=== PATIENT | female | born 1945 | race Caucasian/White ===

== ENCOUNTER → 2016-05-27 | Outpatient (CLI) | payer OTHER, MEDICARE ==
--- NOTE | 2016-05-27 20:52 | DX ---
DEXA Bone Mineral Densitometry Clinical Indications: Osteopenia in a 70-year-old female. Technique: Bone Mineral Densitometry (BMD) by Dual Energy X-Ray Absorptiometry (DEXA) was performed utilizing the [employer] scanner. The lumbar spine was evaluated in the AP projection. The bilat eral hips and forearm were evaluated in the AP projection. Vertebral fracture assessment was also p erformed. Comparison: August 31, 2008. AP Lumbar Spine: The L1, L2, L3, and L4 vertebral bodies were evaluated. BMD: 1.060 gm/cm2. T-score: -1.1 SD. Z-score: 0.6 SD. -2.3% change from the comparison. AP Left Hip: Total BMD: 0.800 gm/cm2. T-score: -1.6 SD. Z-score: -0.1 SD. -3.6% change from the prior examination. AP Right Hip: Total BMD: 0.77 gm/cm2. T-score: -1.8 SD. Z-score: -0.2 SD. -4.8% change from the prior examination. AP Left Forearm, 05/20: BMD: 0.823 gm/cm2. T-score: -0.6 SD. Z-score: 1.5 SD. 1.7% increase compared to the prior exam. Vertebral Fracture Assessment: No significant fracture deformity. No prevertebral aortic calcifica tion, significant marginal bone spurring, facet arthrosis, or intrinsic vertebral body sclerosis that would effect the accuracy of the lumbar spine BMD measurement. Conclusion: Considering the lowest measured site, the patient is osteopenic based on the right hip. The ten year FRAX risk for any major osteoporotic fracture, which excludes the risk for a wrist fract ure, is 20.2% and for a hip fracture is 8.8%. Any bone loss in this patient is probably related to aging or estrogen deficiency. To prevent osteoporosis and to promote bone density, consider the following recommendations: 1. Pursue a regular regimen of weightbearing and muscle-strengthening exercises in order to reduce t he risk of falls and fracture (as tolerated by the patient's general medical condition). 2. Ensure that total daily dietary calcium intake is maximized. 3. Check serum hydroxy vitamin D3 (normal >30ng/ml). 4. Ensure daily intake of vitamin D is 800 international units. 5. Consider follow up DEXA scan in two years to assess the rate of bone loss in this patient. 6. Consider excluding common secondary causes of bone loss. Laboratory evaluation might include CBC , TSH, calcium, phosphorous, albumin, creatinine, alkaline phosphatase, PTH, serum, electrophoresis ( SPEP or UPEP), antitissue transglutaminase antibody levels (celiac disease), and hydroxy vitamin D3, as well as a 24-hour urine calcium.
== END ==
LOC: FIMAGING 13:15
PROVIDERS: ATTEND Physician Assistant
DX: Z13.820 Encounter for screening for osteoporosis (principal); M85.80 Other specified disorders of bone density and structure, unspecified site

== ENCOUNTER → 2017-09-09 | Outpatient (CLI) | payer OTHER, MEDICARE | LOC: BHFA 11:00 | PROVIDERS: ATTEND Internal Medicine Cardiovascular Disease | DX: R06.02 Shortness of breath (principal) ==

== ENCOUNTER → 2017-09-23 | Outpatient (CLI) | payer OTHER, MEDICARE | LOC: BHFA 09:30 | PROVIDERS: ATTEND Internal Medicine Cardiovascular Disease | DX: R94.30 Abnormal result of cardiovascular function study, unspecified (principal) | CPT/HCPCS: 78452; 93017; A9500; J2785 ==

== ENCOUNTER → 2017-12-09 | Outpatient (CLI) | payer OTHER, MEDICARE | LOC: FIMAGING 11:55 | PROVIDERS: ATTEND Nurse Practitioner Family | DX: N63.21 Unspecified lump in the left breast, upper outer quadrant (principal) ==

== ENCOUNTER → 2017-12-14 | Outpatient (CLI) | payer OTHER, MEDICARE ==
[~2017-12-14] MED LIST: LIDOCAINE 1% 300 MG/30 ML SDV ONE
== END ==
LOC: FIMAGING 07:55
PROVIDERS: ATTEND Physician Assistant
PROC: 0HBU3ZX Excision of Left Breast, Percutaneous Approach, Diagnostic (ICD-10-PCS; principal; 2017-12-14)
DX: C50.912 Malignant neoplasm of unspecified site of left female breast (principal)
CPT/HCPCS: 88184-90; 88185-91

== ENCOUNTER 2018-01-08 05:49 | Observation (INO) | payer OTHER, MEDICARE ==
[2018-01-08] MEDS ORDERED: LR 1,000 ML IV ONE (05:58)
[2018-01-08] MEDS ORDERED: VANCOMYCIN PHARMACY TO DOSE MISC ONE (06:00)
[2018-01-08] MEDS ORDERED: VANCOMYCIN HCL/NORMAL SALINE 250 ML IV ONE (06:00)
[2018-01-08] MEDS ORDERED: BUPIVACAINE 0.5% 30 ML SDV ONE (07:06)
[2018-01-08] MEDS ORDERED: LIDOCAINE 1% 300 MG/30 ML SDV ONE (07:06)
[2018-01-08] MEDS ORDERED: MIDAZOLAM 2 MG/2 ML VIAL IVP ONE (07:09)
--- NOTE | 2018-01-08 07:11 | PDHPUP ---
History & Physical Update H&P update statement: This history and physical update is based on an assessment of the patient which was completed after admission or registration (within 24 hours), but prior to the surgery/procedure. H&P update: H&P reviewed & patient examined, no change in patient's condition since H&P completed
[2018-01-08] MEDS ORDERED: MIDAZOLAM 2 MG/2 ML VIAL ONE (07:12)
--- NOTE | 2018-01-08 07:13 | PDANEPAE ---
ANE History of Present Illness re-excision pec muscle ANE Past Medical History - Cardiovascular History Hx Hypertension: No Hx Arrhythmias: No Hx Chest Pain: No Hx Coronary Artery / Peripheral Vascular Disease: No Hx CHF / Valvular Disease: No Hx Palpitations: No Cardiovascular History Comment: BP mildly elevated R/T to stress. mitral valve prolapse - Pulmonary History Hx COPD: No Hx Asthma/Reactive Airway Disease: No Hx Recent Upper Respiratory Infection: No Hx Oxygen in Use at Home: No Hx Sleep Apnea: No Sleep Apnea Screening Result - Last Documented: Negative - Neurologic History Hx Cerebrovascular Accident: No Hx Seizures: No Hx Dementia: No - Endocrine History Hx Diabetes: No Endocrine History Comment: HYPOTHYROID - Renal History Hx Renal Disorders: No - Liver History Hx Hepatic Disorders: No - Neurological & Psychiatric Hx Hx Neurological and Psychiatric Disorders: Yes Neurological / Psychiatric History Comment: DEPRESSION - Cancer History Hx Cancer: Yes Cancer History Comment: BREAST cancer - Congenital Disorder History Hx Congenital Disorders: No - GI History Hx Gastrointestinal Disorders: No - Other Health History Other Health History: BRUISES EASILY. SELVIN LEG VARICOSE VEINS - Chronic Pain History Chronic Pain: Yes (incisional discomfort) - Surgical History Prior Surgeries: SELVIN CATARACT. TUBAL LIGATION. LT ING HERNIA. BREAST IMPLANTS. BREAST IMPLANT REMVL. lumpectomy left breast ANE Review of Systems Review of Systems: - Exercise capacity METS (RN): 4 METS ANE Patient History - Allergies Allergies/Adverse Reactions: azithromycin [From Zithromax] Allergy (Verified 01/07/18 10:44) N/V cephalexin monohydrate [From Keflex] Allergy (Verified 01/07/18 10:44) Unknown Penicillins Allergy (Verified 01/07/18 10:44) facial swelling rosuvastatin calcium [From Crestor] Allergy (Verified 01/07/18 10:44) myalgia, depression Sulfa (Sulfonamide Antibiotics) Allergy (Verified 01/07/18 10:44) facial swelling - Home Medications Home medications: home medication list seen and reviewed Home Medications: Advil 12/31/17 [Last Taken 1 Week Ago ~12/25/17] Aspirin 81mg (*) 12/31/17 [Last Taken 01/06/18] Bupropion HCl 12/31/17 [Last Taken 01/06/18] Ipratropium 0.03% Nasal 12/31/17 [Last Taken 01/06/18] Lexapro 12/31/17 [Last Taken 01/06/18] Ritalin 20mg (*) 12/31/17 [Last Taken 01/06/18] Synthroid 100 mcg (*) 12/31/17 [Last Taken 01/06/18] Herbals/Supplements -Info Only 01/01/18 [Last Taken 01/07/18] Hydrocodone/APAP 5/325 [[place] 5/325 (*)] 01/07/18 [Last Taken 01/08/18 00:01] - NPO status NPO Status: no food or drink >8 hours NPO Since - Liquids (Date): 01/08/18 NPO Since - Liquids (Time): 00:01 NPO Since - Solids (Date): 01/07/18 NPO Since - Solids (Time): 19:00 - Anes Hx Anes Hx: no prior problems - Smoking Hx Smoking Status: Former smoker - Alcohol Use Alcohol Use: None - Family Anes Hx Family Anes Hx: none Family Hx Anesthesia Complications: none ANE Labs/Vital Signs - Labs - BMP Creatinine: mild CRI - Vital Signs Blood Pressure: 137/76 Heart Rate: 68 Respiratory Rate: 16 O2 Sat (%): 93 Height: 167.64 cm Weight: 68.039 kg ANE Physical Exam - Airway Neck exam: FROM Mallampati Score: Class 2 Mouth exam: normal dental/mouth exam - Pulmonary Pulmonary: no respiratory distress - Cardiovascular Cardiovascular: regular rate and rhythym - ASA Status ASA Status: II ANE Anesthesia Plan Anesthesia Plan: general endotracheal anesthesia, GA w LMA (GETA vs LMA)
[2018-01-08] MEDS ORDERED: PROPOFOL/EMULSION 500 MG/50 ML BOTTLE IV ONE (07:25)
[2018-01-08] MEDS ORDERED: fentaNYL 100 MCG/2 ML INJ ONE ×3 (07:25→09:37)
[2018-01-08] MEDS ORDERED: DEXAMETHASONE 4 MG/ML VIAL ONE (07:25)
[2018-01-08] MEDS ORDERED: LIDOCAINE 2% JELLY 5 ML TUBE ONE (07:25)
[2018-01-08] MEDS ORDERED: LIDOCAINE 2% 100 MG/5 ML SYR ONE (07:25)
[2018-01-08] MEDS ORDERED: ONDANSETRON 4 MG/2 ML VIAL ONE (07:25)
[2018-01-08] MEDS ORDERED: ACETAMINOPHEN 500 MG TAB PO PRN ×2 (07:42→08:27)
[2018-01-08] MEDS ORDERED: THROMBIN (BOVINE) 20,000 UNIT SPRAY TP ONE (08:04)
[2018-01-08] MEDS ORDERED: ePHEDrine SULFATE 25 MG/5 ML SYR ONE (08:12)
--- NOTE | 2018-01-08 08:26 | POSTOPPROG ---
Post Op Note Date of Operation: 01/08/18 Surgeon: Lexie Del Rio Sports Manager: tam Anesthesiologist: wes Anesthesia: GET(General Endotracheal) Pre-op Diagnosis: L chest wall sarcom Post-op Diagnosis: same Indication: 72 yo with sarcoma Procedure: WLE chest wall including pectoralis major Findings: no unusual Inf/Abcess present in the surg proc area at time of surgery?: No Depth: Superfical (Skin SQ) Drains: Carlos A Keys Specimen(s): chest wall
[2018-01-08] MEDS ORDERED: LABETALOL HCL 5 MG/ML 20 ML MDV IVP PRN (08:27)
[2018-01-08] MEDS ORDERED: ALBUTEROL 3 ML DEYVIAL IH PRN (08:27)
[2018-01-08] MEDS ORDERED: oxyCODONE IR 5 MG TAB PO PRN (08:27)
[2018-01-08] MEDS ORDERED: HYDROCODONE/APAP 5/325 TAB PO PRN (08:27)
[2018-01-08] MEDS ORDERED: LR 500 ML IV PRN (08:27)
[2018-01-08] MEDS ORDERED: METOCLOPRAMIDE 10 MG/2 ML VIAL IVP PRN (08:27)
[2018-01-08] MEDS ORDERED: MEPERIDINE 25 MG/0.5 ML AMP IVP PRN (08:27)
[2018-01-08] MEDS ORDERED: ONDANSETRON 4 MG/2 ML VIAL IVP PRN (08:27)
[2018-01-08] MEDS ORDERED: NALOXONE HCL 0.4 MG/ML INJ IVP PRN (08:27)
[2018-01-08] MEDS ORDERED: DEXAMETHASONE 4 MG/ML VIAL IVP PRN (08:27)
[2018-01-08] MEDS ORDERED: PROMETHAZINE HCL 25 MG/ML INJ IVP PRN (08:27)
[2018-01-08] MEDS ORDERED: PHENYLEPHRINE HCL 100 MCG/ML SYR IVP PRN (08:27)
--- NOTE | 2018-01-08 08:41 | GOP ---
[f rep st] OPERATIVE REPORT DATE OF OPERATION: 01/08/2018 SURGEON: Lexie Del Rio MD FREIGHT ROUTER: Olena Varela, ESHA. ANESTHESIA: General. ANESTHESIOLOGIST: Srinivasan Keene MD. PREOPERATIVE DIAGNOSIS: Left chest wall sarcoma. POSTOPERATIVE DIAGNOSIS: Left chest wall sarcoma. PROCEDURE PERFORMED: Wide local excision left chest wall [id number] including pectoralis major. FINDINGS: No unusual findings. SPECIMENS: Left chest wall including pectoralis major. ESTIMATED BLOOD LOSS: 10 cc. INDICATIONS: The patient is a 72-year-old woman who had a mass in her left upper chest. Biopsy obtained which showed metaplastic versus sarcoma. The MRI showed more likely sarcoma. I took her to the operating room for wide local excision and took quite a bit of pectoralis muscle. She had a positive deep margin, medial margin and less than 1 mm from superior margin. DESCRIPTION OF PROCEDURE: Patient was brought into the operating room, placed supine on the table and general anesthesia was administered. Her bilateral chest was prepped and draped in the usual sterile fashion. Infiltrated all sites with 0.5% Marcaine prior to making incisions. I marked out 1 cm superiorly, medially, and made an ellipse around her previous scar. I then created skin flaps to continue her dissection toward the clavicle and then beneath the nipple. I excised the pectoralis muscle from the chest wall extending all the way laterally to the attachments by the axilla approximately 10x15 cm. The specimen was marked green anterior, red superior, yellow medial, blue inferior, orange lateral, black posterior. Hemostasis was achieved. Thrombin was placed in the wound. A channel drain was placed in the wound and sutured into place with 3-0 Nylon. The wound was closed with 3-0 Vicryl and 4- 0 Monocryl. Mastisol, Steri-Strips, and a sterile dressing were applied. She was awakened in the operating room, extubated, transferred to PACU in stable condition. /[id number]/MODL MTDD
[2018-01-08] MEDS: fentaNYL 100 MCG/2 ML INJ IVP PRN ×4 (09:11→09:50)
--- NOTE | 2018-01-08 10:08 | POSTANESTH ---
Post Anesthetic Evaluation Cardiovascular Status: Normal, Stable Respiratory Status: Normal, Stable Level of Consciousness/Mental Status: Can Participate in Eval Pain Control: Adequate, Prn Tx Ordered Nausea/Vomiting Control: Adequate, Prn Tx Ordered Complications Possibly Related to Anesthesia: None Noted
[2018-01-08] MEDS: HYDROCODONE/APAP 5/325 TAB PO PRN ×3 (11:16→21:34)
[2018-01-08] MEDS: IBUPROFEN 600 MG TAB PO SCH ×2 (14:12→21:34)
[2018-01-09] MEDS: HYDROCODONE/APAP 5/325 TAB PO PRN ×3 (02:09→11:17)
[2018-01-09] MEDS: IBUPROFEN 600 MG TAB PO SCH (06:16)
[2018-01-09 08:42] VITALS: BP 136/75
[2018-01-09] MEDS ORDERED: buPROPion XL 150 MG TAB PO SCH (09:00)
[2018-01-09] MEDS ORDERED: ESCITALOPRAM OXALATE 10 MG TAB PO SCH (09:00)
--- NOTE | 2018-01-09 11:42 | ASMTCMCOM ---
CM Note CM Note Notes: Spoke w/, no needs identified. Pt will dc home with support of . They have hired a private pay caregiver for assistance. CM available for any changes. DC Plan: Independent Date Signed: 01/09/2018 11:41 AM Electronically Signed By:Anne Stephens RN
--- NOTE | 2018-01-09 11:44 | ASMTLACE ---
LEYDI Length of stay for Answers: 1 day current admission Acuity / Level of Answers: No Care: Did the patient have an inpatient admission? Comorbidities - select Answers: Other Notes: Hypothyroid, Hyperlipid shon all that apply a # of Emergency department Answers: 0 visits in the last 6 months Social determinants Answers: Mental health diagnosis (anxiety, depression, pers onality disorders, etc.) Score: 5 Date Signed: 01/09/2018 11:43 AM Electronically Signed By:Anne Stephens RN
--- NOTE | 2018-01-09 16:06 | SOAPPROG ---
SOAP Progress Note Assessment/Plan: Assessment: 72 year old woman with sarcoma s/p excision of chest wall lesion and L pectoralis major muscle Doing very well Check and record ARETHA DC home S: Feeling surprisingly good O: Scant ARETHA output Dressing cdi CTAB Regular rate Plan: 01/09/18 16:03 Objective: Vital Signs Temp Pulse Resp BP Pulse Ox 36.3 C 80 14 136/75 H 97 01/09/18 08:00 01/09/18 11:19 01/09/18 08:00 01/09/18 08:00 01/09/18 11:19 01/08/18 01/09/18 01/10/18 05:59 05:59 05:59 Intake Total 2150 950 Output Total 815 Balance 1335 950 ICD10 Worksheet Patient Problems: Problems Problem Status Onset Sarcoma Acute - ICD10 Problem Qualifiers (1) Sarcoma
== END 2018-01-09 11:52 | disposition home or self-care (01) ==
LOC: F3N 05:49 → F3E 10:17
PROVIDERS: ADMIT Surgery; ATTEND Surgery
PROC: 0KBJ0ZZ Excision of Left Thorax Muscle, Open Approach (ICD-10-PCS; principal; 2018-01-08 11:30)
DX: C49.3 Malignant neoplasm of connective and soft tissue of thorax (principal); I34.1 Nonrheumatic mitral (valve) prolapse; E03.9 Hypothyroidism, unspecified
CPT/HCPCS: 21554; 88307; 97165; 97535; G8987; G8988; G8989; J1100; J2001; J2250; J2270; J2405; J2704; J3010; J3370

== ENCOUNTER 2018-03-29 20:54 | Emergency (ER) | payer OTHER, MEDICARE ==
[2018-03-29] MEDS ORDERED: HYOSCYAMINE SULFATE 0.125 MG TAB PO ONE (21:12)
[2018-03-29] MEDS ORDERED: MAG HYDROX/AL HYDROX/SIMETH 30 ML UDCUP PO ONE (21:12)
[2018-03-29] MEDS ORDERED: LIDOCAINE 2% VISCOUS 15 ML UDCUP PO ONE (21:12)
--- NOTE | 2018-03-29 21:22 | EDPHY ---
H & P Stated Complaint: HTN, chest tightness, SOB Time Seen by Provider: 03/29/18 21:08 HPI/ROS: CHIEF COMPLAINT: Chest pain HISTORY OF PRESENT ILLNESS: Patient is a 72-year-old female who had some mild epigastric pain this evening. She has had at each evening for the last week and it usually resolves with Tums. Today however she decided to check her blood pressure noticed that it was 179/120. This concerned her and she called her primary Dr. Platt who recommended she come to the ER. No weakness or numbness. No headache. No focal deficits. No shortness of breath. No recent fevers or illness. 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 It was surgically resected previously. She has mild leg swelling and states that this is baseline. No leg pain. Severity: Moderate Modifying factors: Improves with Tums REVIEW OF SYSTEMS: Constitutional: denies: chills, fever, recent illness, recent injury EENTM: denies: blurred vision, double vision, nose congestion Respiratory: denies: cough, shortness of breath Cardiac: denies: chest pain, irregular heart rate, lightheadedness, palpitations Gastrointestinal/Abdominal: denies: abdominal pain, diarrhea, nausea, vomiting, blood streaked stools Genitourinary: denies: dysuria, frequency, hematuria, pain Musculoskeletal: denies: joint pain, muscle pain Skin: denies: lesions, rash, jaundice, bruising Neurological: denies: headache, numbness, paresthesia, tingling, dizziness, weakness Hematologic/Lymphatic: denies: blood clots, easy bleeding, easy bruising Immunologic/allergic: denies: HIV/AIDS, transplant 10 systems reviewed and negative except as noted EXAM: GENERAL: Well-appearing, well-nourished and in no acute distress. HEAD: Atraumatic, normocephalic. EYES: Pupils equal round and reactive to light, extraocular movements intact, sclera anicteric, conjunctiva are normal. ENT: TMs normal, nares patent, oropharynx clear without exudates. Moist mucous membranes. NECK: Normal range of motion, supple without lymphadenopathy or JVD. LUNGS: Breath sounds clear to auscultation bilaterally and equal. No wheezes rales or rhonchi. HEART: Mild erythema surrounding incision left upper breast, minimal tenderness , no dehiscence. No drainage. Regular rate and rhythm without murmurs, rubs or gallops. ABDOMEN: Soft, nontender, normoactive bowel sounds. No guarding, no rebound. No masses appreciated. BACK: No CVA tenderness, no spinal tenderness, step-offs or deformities EXTREMITIES: Normal range of motion, no pitting or edema. No clubbing or cyanosis. NEUROLOGICAL: Cranial nerves II through XII grossly intact. Normal speech, normal gait. 5/5 strength, normal movement in all extremities, normal sensation , normal reflexes PSYCH: Normal mood, normal affect. SKIN: Warm, dry, normal turgor, no visible rashes or lesions. Source: Patient Exam Limitations: No limitations - Personal History Current Tetanus/Diphtheria Vaccine: Yes Current Tetanus Diphtheria and Acellular Pertussis (TDAP): Yes - Medical/Surgical History Hx Asthma: No Hx Chronic Respiratory Disease: No Hx Diabetes: No Hx Cardiac Disease: No Hx Renal Disease: No Hx Cirrhosis: No Hx Alcoholism: No Hx HIV/AIDS: No Hx Splenectomy or Spleen Trauma: No Other PMH: Chest wall mass (sarcoma), depression, HLD, hypothyroid, mitral valve prolapse, cataract surgery, hernia repair - Family History Significant Family History: No pertinent family hx - Social History Smoking Status: Former smoker Alcohol Use: Sober Drug Use: None Constitutional: Initial Vital Signs Temperature (C) 36.6 C 03/29/18 20:59 Heart Rate 76 03/29/18 20:59 Respiratory Rate 20 03/29/18 20:59 Blood Pressure 175/106 H 03/29/18 20:59 O2 Sat (%) 98 03/29/18 20:59 O2 Delivery Mode Room Air Allergies/Adverse Reactions: azithromycin Allergy (Unknown, Verified 03/29/18 21:51) cephalexin monohydrate [From Keflex] Allergy (Verified 03/29/18 21:51) Unknown Penicillins Allergy (Verified 03/29/18 20:58) facial swelling rosuvastatin calcium [From Crestor] Allergy (Verified 03/29/18 20:58) myalgia, depression Sulfa (Sulfonamide Antibiotics) Allergy (Verified 03/29/18 20:58) facial swelling cephalexin monohydrate Allergy (Unknown, Uncoded 03/29/18 20:58) Unknown rosuvastatin calcium Allergy (Unknown, Uncoded 03/29/18 20:58) myalgia, depression Sulfas Allergy (Unknown, Uncoded 03/29/18 20:58) Home Medications: Medication Instructions Recorded Aspirin [Aspirin 81mg (*)] 81 mg PO DAILY #0 12/31/17 Escitalopram Oxalate [Lexapro] 20 mg PO DAILY #0 12/31/17 Ibuprofen [Motrin (*)] 200 mg PO DAILY PRN #0 12/31/17 Ipratropium 0.06% Nasal [Atrovent 2 sprays EACHNARE DAILY #0 12/31/17 0.06% Nasal] Methylphenidate HCl 20 mg PO DAILY #0 12/31/17 [Methylphenidate HCl ER] buPROPion XL [Wellbutrin 150mg XL] 300 mg PO DAILY #0 12/31/17 Herbals/Supplements -Info Only 1 ea PO DAILY #0 01/01/18 Hydrocodone/APAP 5/325 [[place] 1 tab PO Q4-6PRN PRN 01/07/18 5/325 (*)] Cholecalciferol Vit D3 [Vitamin D3 1,000 units PO DAILY 01/08/18 (*)] Estradiol [Estrace Vaginal (*)] 1 mainor VG Q3D@21 01/08/18 Tears/Dextran 70/Hypromellose 1 drop EACHEYE DAILY PRN 01/08/18 [Natural Balance Tears (*)] Hydrocodone/APAP 5/325 [[place] 1 - 2 tab PO Q4HRS PRN tab 01/09/18 5/325 (*)] Ibuprofen [Motrin (*)] 600 mg PO Q8 tab 01/09/18 Pantoprazole Sodium [Protonix] 40 mg PO DAILY #30 tab 03/29/18 Medical Decision Making - Diagnostics EKG Interpretation: An EKG obtained and was read and documented in trace view. Please see trace view for full reading and report. Sinus rhythm, no acute ischemic changes Imaging Results: Imaging Impressions Chest/Thorax CTA 03/29/18 21:17 Impression: 1. No evidence of pulmonary thromboembolic disease. 2. Clear lungs. No acute process. 3. No residual high left chest wall mass or lymphadenopathy. Findings discussed with Emergency Department physician, Ray Solo M.D., on March 29, 2018 at 2224. Imaging: Discussed imaging studies w/ medical transcription supervisor Radiologist ED Course/Re-evaluation: 10:25 p.m. the patient's lab work and imaging are reassuring. She feels completely better after the GI cocktail. I suspect that the radiation is affecting her esophagus. I will start her on Pepcid. She only has 2 more treatments left. She has a CT of her chest abdomen pelvis scheduled for Thursday. She will likely be able to forego the chest CT since 1 was completed ton. Otherwise she is eager to go home and declines further workup or treatment. Blood pressure spontaneously improved to 140/80. Differential Diagnosis: Partial list of the Differential diagnosis considered include but were not limited to; GERD, peptic ulcer disease, PE, anxiety, hypertension and although unlikely based on the history and physical exam, I also considered acute coronary disease, dissection, pneumonia. I discussed these differential diagnoses and the plan with the patient as well as the usual and expected course. The patient understands that the diagnosis is provisional and that in medicine we are not always correct and that further workup is often warranted. Usual and customary warnings were given. All of the patient's questions were answered. The patient was instructed to return to the emergency department should the symptoms at all worsen or return, otherwise to followup with the physician as we discussed. - Data Points Laboratory Results: Laboratory Results 03/29/18 21:27 03/29/18 21:27 03/29/18 03/29/18 03/29/18 21:50 21:27 21:27 WBC RBC Hgb Hct MCV MCH MCHC RDW Plt Count MPV Neut % (Auto) Lymph % (Auto) Scurry % (Auto) Eos % (Auto) Baso % (Auto) Nucleat RBC Rel Count Absolute Neuts (auto) Absolute Lymphs (auto) Absolute Monos (auto) Absolute Eos (auto) Absolute Basos (auto) Absolute Nucleated RBC Immature Gran % Immature Gran # PT 12.6 SEC SEC (12.0-15.0) INR 0.92 (0.83-1.16) APTT 30.6 SEC SEC (23.0-38.0) Sodium 133 mEq/L L mEq/L (135-145) Potassium 4.1 mEq/L mEq/L (3.3-5.0) Chloride 101 mEq/L mEq/L (97-110) Carbon Dioxide 23 mEq/l mEq/l (22-31) Anion Gap 9 mEq/L mEq/L (6-14) BUN 19 mg/dL mg/dL (7-23) Creatinine 1.0 mg/dL mg/dL (0.6-1.0) Estimated GFR 54 Glucose 98 mg/dL mg/dL (70-100) Calcium 9.3 mg/dL mg/dL (8.5-10.4) Total Bilirubin 0.7 mg/dL mg/dL (0.1-1.4) Conjugated Bilirubin 0.2 mg/dL mg/dL (0.0-0.5) Unconjugated Bilirubin 0.5 mg/dL mg/dL (0.0-1.1) AST 30 IU/L IU/L (14-46) ALT 35 IU/L IU/L (9-52) Alkaline Phosphatase 68 IU/L IU/L (38-126) POC Troponin I 0.00 ng/mL ng/mL (0.00-0.08) Total Protein 6.7 g/dL g/dL (6.3-8.2) Albumin 4.2 g/dL g/dL (3.5-5.0) Lipase 133 IU/L IU/L (23-300) 03/29/18 21:27 WBC 4.83 10^3/uL 10^3/uL (3.80-9.50) RBC 4.20 10^6/uL 10^6/uL (4.18-5.33) Hgb 12.6 g/dL g/dL (12.6-16.3) Hct 37.7 % L % (38.0-47.0) MCV 89.8 fL fL (81.5-99.8) MCH 30.0 pg pg (27.9-34.1) MCHC 33.4 g/dL g/dL (32.4-36.7) RDW 12.7 % % (11.5-15.2) Plt Count 196 10^3/uL 10^3/uL (150-400) MPV 10.0 fL fL (8.7-11.7) Neut % (Auto) 66.3 % % (39.3-74.2) Lymph % (Auto) 18.6 % % (15.0-45.0) Scurry % (Auto) 11.4 % % (4.5-13.0) Eos % (Auto) 2.9 % % (0.6-7.6) Baso % (Auto) 0.6 % % (0.3-1.7) Nucleat RBC Rel Count 0.0 % % (0.0-0.2) Absolute Neuts (auto) 3.20 10^3/uL 10^3/uL (1.70-6.50) Absolute Lymphs (auto) 0.90 10^3/uL L 10^3/uL (1.00-3.00) Absolute Monos (auto) 0.55 10^3/uL 10^3/uL (0.30-0.80) Absolute Eos (auto) 0.14 10^3/uL 10^3/uL (0.03-0.40) Absolute Basos (auto) 0.03 10^3/uL 10^3/uL (0.02-0.10) Absolute Nucleated RBC 0.00 10^3/uL 10^3/uL (0-0.01) Immature Gran % 0.2 % % (0.0-1.1) Immature Gran # 0.01 10^3/uL 10^3/uL (0.00-0.10) PT INR APTT Sodium Potassium Chloride Carbon Dioxide Anion Gap BUN Creatinine Estimated GFR Glucose Calcium Total Bilirubin Conjugated Bilirubin Unconjugated Bilirubin AST ALT Alkaline Phosphatase POC Troponin I Total Protein Albumin Lipase Medications Given: Discontinued Medications Al Hydroxide/Mg Hydroxide (Maalox Susp) 30 ml PO ONCE ONE Stop: 03/29/18 21:13 Last Admin: 03/29/18 21:51 Dose: 30 ml Hyoscyamine Sulfate (Levsin, Hyomax-Sl) 0.25 mg PO ONCE ONE Stop: 03/29/18 21:13 Last Admin: 03/29/18 21:51 Dose: 0.25 mg Lidocaine (Lidocaine 2% Viscous) 15 ml PO ONCE ONE Stop: 03/29/18 21:13 Last Admin: 03/29/18 21:51 Dose: 15 ml Point of Care Test Results: Chemistry 03/29/18 21:50 POC Troponin I 0.00 ng/mL ng/mL (0.00-0.08) Departure - Departure Disposition: Home, Routine, Self-Care Clinical Impression: Chest discomfort Hypertension Qualifiers: Hypertension type: unspecified Qualified Code(s): I10 - Essential (primary) hypertension Condition: Fair Instructions: Chest Pain (ED), Gastroesophageal Reflux Disease (ED) Referrals: Tony Platt MD [Primary Care Provider] - 2-3 days, if not improved Prescriptions: Pantoprazole Sodium [Protonix] 40 mg PO DAILY #30 tab
--- NOTE | 2018-03-29 21:23 | CPEKG ---
Test Reason : OPEN Blood Pressure : / mmHG Vent. Rate : 071 BPM Atrial Rate : 071 BPM P-R Int : 196 ms QRS Dur : 085 ms QT Int : 404 ms P-R-T Axes : 039 061 054 degrees QTc Int : 439 ms Sinus rhythm Confirmed by Ray Solo ([id number]) on 03/29/2018 9:22:58 PM Referred By: Confirmed By:Ray Solo
[2018-03-29 21:38] LABS: PLATELET COUNT 196 10^3/uL (150-400)
[2018-03-29] MEDS ORDERED: IOPAMIDOL (ISOVUE 370) 100 ML BTL IV ONE (21:39)
[2018-03-29 21:47] LABS: INR 0.92 (0.83-1.16); PROTIME(PATIENT) 12.6 SEC (12.0-15.0)
[2018-03-29 22:37] VITALS: BP 145/82
== END 2018-03-29 22:37 | disposition home or self-care (01) ==
DX: I10 Essential (primary) hypertension (principal); R07.9 Chest pain, unspecified; C49.3 Malignant neoplasm of connective and soft tissue of thorax; E78.5 Hyperlipidemia, unspecified; F32.9 Major depressive disorder, single episode, unspecified; Z87.891 Personal history of nicotine dependence
CPT/HCPCS: 71275; 93005; 99285; Q9967; 84484-PO